=== PATIENT | female | born 1975 | race American Indian/Alaskan Native ===

== ENCOUNTER 2021-12-06 17:44 | Emergency (ER) | payer BC ==
--- NOTE | 2021-12-06 19:46 | XRay Report ---
CHEST 2 VIEWS INDICATION / CLINICAL INFORMATION: chest pain. COMPARISON: None available. FINDINGS: SUPPORT DEVICES: None. HEART / MEDIASTINUM: No significant abnormality. LUNGS / PLEURA: No significant pulmonary or pleural abnormality. No pneumothorax. ADDITIONAL FINDINGS: No significant additional findings. IMPRESSION: 1. No acute findings. Signer Name: Rock Warren DO Signed: 12/06/2021 7:41 PM Workstation Name: [id number]
[2021-12-06 20:07] LABS: Basophils # (Auto) 0.1 K/mm3 (0.0-0.1); Basophils % (Auto) 0.5 % (0.0-1.8); Eosinophils # (Auto) 0.6 K/mm3 (0.0-0.4); Eosinophils % (Auto) 3.9 % (0.0-4.3); Hematocrit 42.8 % (30.3-42.9); Lymphocytes # (Auto) 2.8 K/mm3 (1.2-5.4); Lymphocytes % (Auto) 18.4 % (13.4-35.0); Mean Corpuscular HGB Conc 33 % (30-34); Mean Corpuscular Volume 88 fl (79-97); Monocytes # (Auto) 1.2 K/mm3 (0.0-0.8); Monocytes % (Auto) 7.8 % (0.0-7.3); Platelet Count 326 K/mm3 (140-440); Red Blood Count 4.88 M/mm3 (3.65-5.03); Red Cell Distribution Width 15.1 % (13.2-15.2)
[2021-12-06 20:34] LABS: Alanine Aminotransferase 10 units/L (7-56); Blood Urea Nitrogen 9 mg/dL (7-17); Calcium 9.3 mg/dL (8.4-10.2); Hemolysis Index 0
[2021-12-06 20:40] LABS: BUN/Creatinine Ratio 13
[2021-12-06] MEDS ORDERED: oxyCODONE /ACETAMINOPHEN 5-325MG TAB PO ONE (21:48)
--- NOTE | 2021-12-06 21:53 | Emergency Department Report ---
ED General Adult HPI - General Chief complaint: Chest Pain Stated complaint: CHEST PAIN/KIDNEY INFECTION PUI?: No Time Seen by Provider: 12/06/21 21:38 Source: patient Mode of arrival: Ambulatory Limitations: No Limitations - History of Present Illness Initial comments: 46-year-old female with a past medical history of asthma, bronchitis, pancreatitis presents to the ER today with complaints of chest pain and vaginal bleeding. Patient states that the chest pain started this morning. She states it has been constant. She described it as a burning achy pain which radiates into her back. Patient states that the pain seems to be worse when she takes a deep breath. She also admits that she has been coughing for couple days and she states "the cough has been bad". She states that has been nonproductive and she has had "a little wheezing with it". She denies any shortness of breath. She admits that she does have a history of asthma and also bronchitis but she does not get very frequent flareups and therefore does not have any inhalers or nebulizer treatments at home. She reports associated rhinorrhea, nasal congestion and she did have some subjective fever last night. She denies any ill contacts or recent travel. She reports no risk factors for coronary artery disease, no any risk factors for PE/DVT and she is never had history of either. Patient also states that she started with vaginal bleeding this morning. She states that she notices it mainly when she wipes with tissue. But she states that she is status post partial hysterectomy. Patient is adamant that this is vaginal bleeding and not hematuria. She states that she did see a small clot. She reports associated back pain. She denies any potential injury or trauma to the vaginal area. She denies any dysuria, hematuria or urinary odor. She states that she is currently being treated for UTI with Cipro which she started this past Wednesday. Patient has a history of chronic low back pain status post back surgery in the past but she states that she initially diagnosed a UTI she has been having pain mainly in her right flank area which is unusual for her. MD Complaint: Chest pain/Vaginal bleeding -: This morning - Related Data Previous Rx's Medication Instructions Recorded Last Taken Type Albuterol Mdi (or & Nicu Only) 2 puff IH QID PRN #8.5 gram 12/07/21 Unknown Rx [ProAir HFA Inhaler] Cetirizine HCl [Zyrtec 10mg tab] 10 mg PO DAILY #30 12/07/21 Unknown Rx Promethazine /Codeine 5 - 10 ml PO Q6H PRN #120 ml 12/07/21 Unknown Rx [Phenergan/Codeine 6.25-10 mg/5 ml] Sulfamethoxazole/Trimethoprim 1 each PO BID #6 12/07/21 Unknown Rx [Bactrim DS TAB] predniSONE [Deltasone] 50 mg PO QDAY #5 tab 12/07/21 Unknown Rx Allergies Allergy/AdvReac Type Severity Reaction Status Date / Time azithromycin Allergy Anaphylaxis Verified 12/06/21 17:51 cephalexin [From Keflex] Allergy Itching Verified 12/06/21 17:51 hydrocodone Allergy Itching Verified 12/06/21 17:51 ondansetron [From Zofran] Allergy Vomiting Verified 12/06/21 17:51 Penicillins Allergy Anaphylaxis Verified 12/06/21 17:51 ED Review of Systems ROS: Stated complaint: CHEST PAIN/KIDNEY INFECTION Other details as noted in HPI Comment: All other systems reviewed and negative Constitutional: fever (subjective ) Eyes: denies: eye pain, eye discharge, vision change ENT: congestion, other (rhinorrhea ). denies: ear pain, throat pain Respiratory: cough, wheezing. denies: shortness of breath Cardiovascular: chest pain Gastrointestinal: denies: abdominal pain, nausea, vomiting, diarrhea, constipation, hematemesis, hematochezia Genitourinary: other (vaginal bleeding). denies: urgency, dysuria, frequency, hematuria, discharge, abnormal menses, dyspareunia Musculoskeletal: denies: back pain, joint swelling, arthralgia Skin: denies: rash, lesions, change in color, change in hair/nails, pruritus Neurological: denies: headache, weakness, numbness, paresthesias, confusion, abnormal gait, vertigo Psychiatric: denies: anxiety, depression, auditory hallucinations, visual hallucinations, homicidal thoughts, suicidal thoughts Hematological/Lymphatic: denies: easy bleeding, easy bruising, swollen glands ED Past Medical Hx - Medications Home Medications: Home Medications Medication Instructions Recorded Confirmed Last Taken Type Albuterol Mdi (or & Nicu Only) 2 puff IH QID PRN #8.5 gram 12/07/21 Unknown Rx [ProAir HFA Inhaler] Cetirizine HCl [Zyrtec 10mg tab] 10 mg PO DAILY #30 12/07/21 Unknown Rx Promethazine /Codeine 5 - 10 ml PO Q6H PRN #120 ml 12/07/21 Unknown Rx [Phenergan/Codeine 6.25-10 mg/5 ml] Sulfamethoxazole/Trimethoprim 1 each PO BID #6 12/07/21 Unknown Rx [Bactrim DS TAB] predniSONE [Deltasone] 50 mg PO QDAY #5 tab 12/07/21 Unknown Rx ED Physical Exam - General Limitations: No Limitations General appearance: alert, in no apparent distress, obese - Head Head exam: Present: atraumatic, normocephalic, normal inspection - Eye Eye exam: Present: normal appearance, PERRL, EOMI Pupils: Present: normal accommodation - External exam: Present: normal external exam, other (Metal Fabricator Helper present ) Speculum exam: Present: vaginal discharge. Absent: vaginal bleeding - Back Exam Back exam: Present: normal inspection, full ROM (but painful ), CVA tenderness (R). Absent: vertebral tenderness - Neurological Exam Neurological exam: Present: alert, oriented X3, CN II-XII intact, normal gait - Psychiatric Psychiatric exam: Present: normal affect, normal mood - Skin Skin exam: Present: intact ED Course Vital Signs 12/06/21 12/06/21 12/06/21 17:50 21:53 22:17 Temperature 99.6 F 97.8 F Pulse Rate 107 H 103 H Respiratory 20 16 14 Rate Blood Pressure 154/91 Blood Pressure 138/82 [Left] O2 Sat by Pulse 98 97 Oximetry 12/06/21 12/07/21 23:58 02:29 Temperature Pulse Rate 90 Respiratory 14 12 Rate Blood Pressure Blood Pressure 106/51 [Left] O2 Sat by Pulse 97 Oximetry ED Medical Decision Making - Lab Data Result diagrams: 12/06/21 19:37 12/06/21 19:37 - EKG Data EKG shows normal: sinus rhythm Rate: normal (96) - EKG Data Interpretation: normal EKG - Radiology Data Radiology results: report reviewed Patient: LARISA ARMENDARIZ MR#: [id number] : 1975 Acct:[id number] Age/Sex: 46 / F ADM Date: 12/06/21 Loc: ED Attending Dr: Ordering Physician: ALESHIA LEVINE Date of Service: 12/06/21 Procedure(s): XR chest routine 2V Accession Number(s): [id number] cc: ALESHIA LEVINE Fluoro Time In Minutes: CHEST 2 VIEWS INDICATION / CLINICAL INFORMATION: chest pain. COMPARISON: None available. FINDINGS: SUPPORT DEVICES: None. HEART / MEDIASTINUM: No significant abnormality. LUNGS / PLEURA: No significant pulmonary or pleural abnormality. No pneumothorax. ADDITIONAL FINDINGS: No significant additional findings. IMPRESSION: 1. No acute findings. Signer Name: Rock Sneed DO Signed: 12/06/2021 7:41 PM Workstation Name: [id number] Transcribed By: [place] Dictated By: ROCK SNEED DO Electronically Authenticated By: ROCK SNEED DO Signed Date/Time: 12/06/211940 DD/ 40 TD/TT: - Medical Decision Making All labs reviewed -- CBC showed elevated wbc of 15 otherwise unremarkable. CMP unremarkable including normal troponin. Urinalysis still concerned for possible UTI. Chest x-ray shows nothing acute. EKG was normal without any STEMI or any significant dysrhythmias. CT abdomen pelvis shows enlarged left ovary but otherwise unremarkable. She did have a mild allergic reaction after receiving Solu-Medrol which she admitted that she forgot to mention that she has an allergy to Solu-Medrol. She had some diffuse itching but otherwise no rash, angioedema, worsening wheezing or respiratory distress. Patient was given IV Benadryl and she was offered ready getting a breathing treatment at the time of her reaction. Evaluation after medication showed improvement of itching and her wheezing did improve. Repeat vital signs are stable. She is not toxic or ill-appearing. I did do a pelvic exam to determine whether patient was really having vaginal bleeding status post hysterectomy and there was no bleeding in the vaginal area. I suspect that the blood that she saw was likely coming from her urine. We will add Bactrim to her regimen for UTI. She also be given prescriptions to help her URI/asthma bronchitis symptoms. I did recommend to patient that she gets an outpatient COVID-19 test. Also recommend follow-up with her primary care doctor. Patient expressed understanding agree with plan. Patient was stable at time of discharge. Critical care attestation.: If time is entered above; I have spent that time in minutes in the direct care of this critically ill patient, excluding procedure time. ED Disposition Clinical Impression: Nonspecific chest pain, Asthmatic bronchitis, Back pain, UTI (urinary tract infection), URI (upper respiratory infection) Disposition: 01 HOME / SELF CARE / HOMELESS Is pt being admited?: No Does the pt Need Aspirin: No Condition: Stable Instructions: Acute Back Pain, Adult, Urinary Tract Infection, Adult, Nonspecific Chest Pain, Adult, [id number], Upper Respiratory Infection, Adult, [id number], Asthma, Adult, [id number], Chronic Bronchitis (ED) Additional Instructions: Take the albuterol inhaler, the promethazine with codeine, prednisone and the Zyrtec as prescribed help your URI/asthma symptoms. Do recommend that you consider getting a COVID-19 test at a local pharmacy, urgent care clinic as this could be also because of your URIs symptoms. Your urine analysis is still conc erning for UTI, recommend that you finish the Cipro but you can start taking the Bactrim tomorrow. Increase your water intake. Follow-up with your primary care doctor next week. Return to the ER if your symptoms changes or worsens in any way. Prescriptions: Sulfamethoxazole/Trimethoprim [Bactrim DS TAB] 1 each PO BID #6 predniSONE [Deltasone] 50 mg PO QDAY #5 tab Promethazine /Codeine [Phenergan/Codeine 6.25-10 mg/5 ml] 5 - 10 ml PO Q6H PRN #120 ml PRN Reason: cough/pain Albuterol Mdi (or & Nicu Only) [ProAir HFA Inhaler] 2 puff IH QID PRN #8.5 gram PRN Reason: Shortness Of Breath Cetirizine HCl [Zyrtec 10mg tab] 10 mg PO DAILY #30 Referrals: PRIMARY CARE, [Primary Care Provider] - 3-5 Days KATERINE BURTON MD [Staff Physician] - 3-5 Days Forms: Work/School Release Form(ED) Time of Disposition: 00:22 HEART Score - HEART Score History: Slightly suspicious EKG: Normal Age: < 45 Risk factors: 1-2 risk factors Troponin: Troponin T < 0.010 ng/mL (0.00-0.029) 12/06/21 19:37 Troponin: < normal limit HEART Score: 1 - Critical Actions Critical Actions: 0-3 pts:0.9-1.7%risk of adverse cardiac event.Candidate for discharge
[2021-12-06] MEDS ORDERED: KETOROLAC 30 MG/1 ML INJ IV ONE (22:08)
[2021-12-06] MEDS ORDERED: SODIUM CHLORIDE 0.9% 1000 ML 1,000 ML IV ONE (22:08)
[2021-12-06 22:26] LABS: Color,Urine Yellow (Yellow)
[2021-12-06 22:27] LABS: Bacteria,Urine 1+ /HPF (Negative); Bilirubin,Urine NEG (Negative); Blood,Urine SM (Negative); Mucus,Urine 3+ /HPF; Protein,Urine <15 mg/dL mg/dL (Negative); Urobilinogen,Urine < 2.0 mg/dL (<2.0)
--- NOTE | 2021-12-06 23:29 | Cat Scan Report ---
CT abdomen pelvis wo con INDICATION / CLINICAL INFORMATION: right flank pain. TECHNIQUE: Axial CT imaging of abdomen and pelvis was obtained without contrast. Coronal and sagittal reformatte d imaging obtained and reviewed. All CT scans at this location are performed using CT dose reduction for ALARA by means of automated exposure control. COMPARISON: None available. FINDINGS: CT abdomen without contrast demonstrates normal appearance of the spleen, pancreas, kidneys, and adre nal glands. Prior cholecystectomy. No intrarenal calculus or hydronephrosis. Abdominal aorta is unrem arkable on this noncontrast exam. There is focal hypodensity throughout the superior aspect of the right hepatic lobe. This is nonspeci fic, noncontrast CT but may represent focal fatty infiltration. The remainder of the liver appears gr ossly normal. CT pelvis without contrast demonstrates an enlarged left ovary. Left ovary measures 4.9 x 3.1 x 5.0 c m. The uterus is absent. The right ovary is not identified. Otherwise, no additional pelvic mass. No free fluid or focal inflammatory change. A normal appendix is present in the lower mid abdomen. GI tr act is unremarkable. Visualized lung bases are clear. Review of osseous structures demonstrates posterior lumbar fusion at L4-L5. No acute skeletal abnorma lity noted. IMPRESSION: 1. Focal region of hypodensity throughout the right hepatic lobe. This is nonspecific on this noncont rast exam but potentially could represent focal hepatic steatosis/geographic fatty infiltration. This could be confirmed with CT abdomen with IV contrast, if clinically warranted. 2. Enlarged left ovary. On a nonemergent basis, pelvic ultrasound should be obtained to exclude the p ossibility of underlying ovarian mass. 3. No evidence of urinary tract calculi or hydronephrosis. Appendix is normal. Signer Name: Ros Riley MD Signed: 12/06/2021 11:24 PM Workstation Name: [id number]
[2021-12-07] MEDS ORDERED: IPRATROPIUM/ALBUTEROL SULFATE 3 ML AMPUL.NEB IH ONE (00:29)
[2021-12-07] MEDS ORDERED: methylPREDNISolone Sod Succinate 125 MG/2 ML INJ IV ONE (00:29)
[2021-12-07] MEDS ORDERED: diphenhydrAMINE 50 MG/ML VIAL IV ONE (00:43)
[2021-12-07] MEDS ORDERED: diazePAM 5 MG TAB PO ONE (02:17)
[2021-12-07 02:30] VITALS: BP 106/51
--- NOTE | 2021-12-08 09:00 | Electrocardiograph Report ---
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
== END 2021-12-07 03:37 | disposition home or self-care (01) ==
LOC: ED 17:44
DX: R07.9 Chest pain, unspecified (principal); J45.909 Unspecified asthma, uncomplicated; M54.9 Dorsalgia, unspecified; N39.0 Urinary tract infection, site not specified; J06.9 Acute upper respiratory infection, unspecified; Z88.0 Allergy status to penicillin; Z88.4 Allergy status to anesthetic agent; Z88.1 Allergy status to other antibiotic agents
CPT/HCPCS: 36415; 71046; 74176; 80053; 81001; 83690; 84484; 85025; 93005; 94640; 96361; 96374; 96375; 99285; J1200; J1885; J2930; J7030; Q0162